=== PATIENT | female | born 1985 | race Caucasian/White ===

== ENCOUNTER 2022-08-15 11:26 | Emergency (ER) | payer OTHER ==
[~2022-08-15] VITALS: Ht 157.5 cm; Wt 61.4 kg
[~2022-08-15 11:26] MED LIST: DSS100 PO; FERR-72 PO; IBUP-2070 PO; PREN1TAB78 PO
[2022-08-15 11:49] VITALS: BP 105/68
== END 2022-08-15 11:57 | disposition left against medical advice (07) ==
LOC: EMS 11:29
DX: Z53.21 Procedure and treatment not carried out due to patient leaving prior to being seen by health care provider (principal)